=== PATIENT | male | born 1990 | race American Indian/Alaskan Native ===

== ENCOUNTER 2017-05-08 16:10 | Emergency (ER) | payer OTHER ==
[2017-05-08 16:24] VITALS: O2SAT 99
[2017-05-08 16:57] VITALS: BP 111/70; PULSE 58; RESP 19; TEMP 98.5
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
== END 2017-05-08 17:19 | disposition home or self-care (01) ==
LOC: ED 16:10
DX: S39.012A Strain of muscle, fascia and tendon of lower back, initial encounter (principal); V49.9XXA Car occupant (driver) (passenger) injured in unspecified traffic accident, initial encounter; Y92.410 Unspecified street and highway as the place of occurrence of the external cause